=== PATIENT | male | born 1965 | race Hispanic/Latino ===

== ENCOUNTER 2016-09-19 13:23 | Emergency (ER) | payer OTHER ==
--- NOTE | 2016-09-19 14:09 | Emergency Department Report ---
Chief Complaint: Extremity Injury, Lower Stated Complaint: FEET SWOLLEN/GROIN PAIN Time Seen by Provider: 09/19/16 14:05 - HPI History of Present Illness: PT states when he was working a lot he would occasionally have ble. pt states he has gradually noticed increase in ble edema. - ROS Review of Systems: -f/c/n/v - calf pain - Exam Vital Signs: Vital Signs 09/19/16 13:54 Temperature 99.6 F Pulse Rate 80 Respiratory 18 Rate Blood Pressure 141/87 O2 Sat by Pulse 99 Oximetry Physical Exam: + 2 DP jeffrey + pitting edema to ble MSE screening note: Focused history and physical exam performed. Due to findings the following was ordered: labs ED Disposition for MSE Condition: Stable
[2016-09-19 14:36] LABS: Basophils % (Auto) 1.3 % (0.0-1.8); Eosinophils % (Auto) 4.2 % (0.0-4.3); Hematocrit 42.4 % (35.5-45.6); Hemoglobin 14.2 gm/dl (11.8-15.2); Mean Corpuscular HGB Conc 34 % (32-34); Mean Corpuscular Hemoglobin 30 pg (28-32); Mean Corpuscular Volume 89 fl (84-94); Platelet Count 305 K/mm3 (140-440); Red Blood Count 4.78 M/mm3 (3.65-5.03); Red Cell Distribution Width 13.5 % (13.2-15.2); White Blood Count 7.1 K/mm3 (4.5-11.0)
[2016-09-19 14:50] LABS: Alanine Aminotransferase 15 units/L (7-56); Albumin 4.2 g/dL (3.9-5); Albumin/Globulin Ratio 1.6 %; Alkaline Phosphatase 71 units/L (35-129); Anion Gap 16 mmol/L; Bilirubin,Total 0.6 mg/dL (0.1-1.2); Blood Urea Nitrogen 11 mg/dL (9-20); Calcium 9.3 mg/dL (8.4-10.2); Carbon Dioxide 29 mmol/L (22-30); Chloride 99.4 mmol/L (98-107); Glucose 91 mg/dL (75-100); Potassium 4.5 mmol/L (3.6-5.0); Sodium 140 mmol/L (137-145); Total Protein 6.8 g/dL (6.3-8.2)
--- NOTE | 2016-09-20 03:18 | Emergency Department Report ---
ED Lower Extremity HPI - General Chief Complaint: Extremity Injury, Lower Stated Complaint: FEET SWOLLEN/GROIN PAIN Time Seen by Provider: 09/19/16 14:05 Source: patient Mode of arrival: Ambulatory Limitations: No Limitations - History of Present Illness Initial Comments: Patient is a 50-year-old male with no past medical history presenting to the ED today for lower extremity swelling and intermittent right inguinal hernia. Patient reports the swelling and the hernia has been a chronic issue for him for the past year however today he noticed that his right inguinal hernia was protruding and was causing him a lot of pain. Currently he reports the hernia is not present and is not causing him any discomfort. He does report to use of methamphetamines. Patient has not seen a primary care provider for the swelling in his lower extremities. Otherwise no fevers chills nausea vomiting chest pain shortness of breath hemoptysis travel or sick contacts - Related Data Previous Rx's Medication Instructions Recorded Last Taken Type Cephalexin [Keflex] 500 mg PO Q6H #28 capsule 05/05/14 Unknown Rx Sulfamethoxazole/Trimethoprim 1 each PO BID #14 tablet 05/05/14 Unknown Rx [Bactrim Ds] Allergies Allergy/AdvReac Type Severity Reaction Status Date / Time No Known Allergies Allergy Verified 05/04/14 22:51 ED Review of Systems ROS: Stated complaint: FEET SWOLLEN/GROIN PAIN Other details as noted in HPI Comment: All other systems reviewed and negative ED Past Medical Hx - Past Medical History Previous Medical History?: No - Surgical History Past Surgical History?: Yes - Social History Smoking Status: Light Tobacco Smoker Substance Use Type: None - Medications Home Medications: Home Medications Medication Instructions Recorded Confirmed Last Taken Type Cephalexin [Keflex] 500 mg PO Q6H #28 capsule 05/05/14 Unknown Rx Sulfamethoxazole/Trimethoprim 1 each PO BID #14 tablet 05/05/14 Unknown Rx [Bactrim Ds] ED Physical Exam - General Limitations: No Limitations General appearance: alert, in no apparent distress - Head Head exam: Present: atraumatic, normocephalic - Eye Eye exam: Present: normal appearance - ENT ENT exam: Present: mucous membranes moist - Neck Neck exam: Present: normal inspection - Respiratory Respiratory exam: Present: normal lung sounds bilaterally. Absent: respiratory distress - Cardiovascular Cardiovascular Exam: Present: regular rate, normal rhythm. Absent: systolic murmur, diastolic murmur, rubs, gallop - GI/Abdominal GI/Abdominal exam: Present: soft, normal bowel sounds - Rectal Rectal exam: Present: deferred - Extremities Exam Extremities exam: Present: normal inspection, full ROM, normal capillary refill , other (2+ pitting edema of lower extremities). Absent: tenderness - Back Exam Back exam: Present: normal inspection - Neurological Exam Neurological exam: Present: alert, oriented X3 - Psychiatric Psychiatric exam: Present: normal affect, normal mood - Skin Skin exam: Present: warm, dry, intact, normal color. Absent: rash ED Course Vital Signs 09/19/16 09/20/16 09/20/16 13:54 03:46 03:52 Temperature 99.6 F Pulse Rate 80 70 Respiratory 18 20 20 Rate Blood Pressure 141/87 Blood Pressure 115/80 [Right] O2 Sat by Pulse 99 100 100 Oximetry ED Lower Extremity MDM - Lab Data Result diagrams: 09/19/16 14:09 09/19/16 14:09 - Medical Decision Making Results discussed with the patient given the chronicity greater than 1 year patient is to follow-up with his primary care. Critical care attestation.: If time is entered above; I have spent that time in minutes in the direct care of this critically ill patient, excluding procedure time. ED Disposition Clinical Impression: Edema, Recurrent inguinal hernia Disposition: DISCHARGED TO HOME OR SELFCARE Is pt being admited?: No Condition: Stable Instructions: Inguinal Hernia (ED), Leg Edema (ED) Referrals: PRIMARY CARE, [Primary Care Provider] - 3-5 Days
[2016-09-20 03:52] VITALS: BP 115/80
== END 2016-09-20 03:59 | disposition home or self-care (01) ==
LOC: ED 13:23
DX: R60.9 Edema, unspecified (principal); K40.90 Unilateral inguinal hernia, without obstruction or gangrene, not specified as recurrent; F17.200 Nicotine dependence, unspecified, uncomplicated
CPT/HCPCS: 36415; 80053; 83880; 85025; 99283